=== PATIENT | female | born 1940 | race Caucasian/White ===

== ENCOUNTER 2017-09-28 06:42 | Emergency (ER) | payer MEDICARE, OTHER ==
[2017-09-28] MEDS ORDERED: ACETAMINOPHEN 325 MG TAB ONE (06:55)
[2017-09-28] MEDS ORDERED: IPRATROPIUM/ALBUTEROL SULFATE 3 ML SOLUTION IH ONE ×2 (06:58→07:16)
[2017-09-28] MEDS ORDERED: OSELTAMIVIR PHOSPHATE 75 MG CAP ONE (07:48)
== END 2017-09-28 08:09 | disposition home or self-care (01) ==
LOC: EDH 06:42
DX: J09.X2 Influenza due to identified novel influenza A virus with other respiratory manifestations (principal)
CPT/HCPCS: 87804; 94640

== ENCOUNTER 2017-10-16 17:08 | Emergency (ER) | payer MEDICARE, OTHER ==
[2017-10-16] MEDS ORDERED: ACETAMINOPHEN EXTRA STRENGTH 500 MG TABLET ONE (18:36)
== END 2017-10-16 19:04 | disposition home or self-care (01) ==
LOC: EDH 17:08
DX: S83.8X1A Sprain of other specified parts of right knee, initial encounter (principal); R03.0 Elevated blood-pressure reading, without diagnosis of hypertension; Z88.1 Allergy status to other antibiotic agents; Z87.891 Personal history of nicotine dependence; X50.0XXA Overexertion from strenuous movement or load, initial encounter; Y93.89 Activity, other specified; Y92.098 Other place in other non-institutional residence as the place of occurrence of the external cause; Y99.8 Other external cause status
CPT/HCPCS: 29505; 73562